=== PATIENT | male | born 1955 | race Caucasian/White ===

== ENCOUNTER 2021-04-02 15:06 | Emergency (ER) | payer MEDICARE ==
[2021-04-02] MEDS ORDERED: PREDNISONE 20MG20 MG PO ×2 (16:44→16:45)
== END 2021-04-02 17:05 | disposition home or self-care (01) ==
LOC: FER 15:06
DX: J30.9 Allergic rhinitis, unspecified (principal)
CPT/HCPCS: 99282; J1100

== ENCOUNTER 2021-04-15 11:54 | Emergency (ER) | payer MEDICARE, OTHER ==
[~2021-04-15 11:54] MED LIST: PREDNISONE 20MG20 MG PO
[2021-04-15 13:12] LABS: BASOPHIL 0.3 % (0-2); EOSINOPHIL 1.3 % (0-7); HCT 43.3 % (42.0-52.0); HGB 14.7 g/dl (13.2-18.0); LYMPHOCYTE 18.8 % (15-48); MCH 31.5 pg (25.0-31.0); MCHC 33.9 g/dL (32.0-36.0); MCV 92.7 fL (78.0-100.0); MPV 10.3 fL (6.0-9.5); NEUTROPHIL 71.4 % (41-80); NRBC 0; PLT 243 K/uL (150-400); RBC 4.67 M/uL (4.70-6.00); RDW 15.4 % (11.5-14.0); WBC 10.9 K/uL (4.0-10.5)
[2021-04-15 13:49] LABS: LACTIC ACID 1.2 mmol/L (0.4-1.9)
[2021-04-15 14:19] LABS: ALBUMIN 3.2 g/dL (3.4-5.0); BILIRUBIN - TOTAL 0.3 mg/dL (0.2-1.0); BUN/CREAT RATIO (CALC) 17.9 RATIO; CREATININE 0.78 mg/dL (0.67-1.17); POTASSIUM 4.1 mmol/L (3.5-5.1); TOTAL PROTEIN 7.2 g/dL (6.4-8.2)
[2021-04-15 14:29] LABS: BILIRUBIN NEGATIVE (NEGATIVE); BLOOD NEGATIVE Ery/uL (NEGATIVE); CLARITY CLEAR (CLEAR); COLOR YELLOW (YELLOW); GLUCOSE (U) NORMAL (NORMAL); LEUKOCYTES NEGATIVE Leu/uL (NEGATIVE); NITRITE NEGATIVE (NEGATIVE); PROTEIN NEGATIVE (NEGATIVE); UROBILINOGEN 0.2 mg/dL (0.2-1.0)
[2021-04-15] MEDS ORDERED: LEVAQUIN750 MG PO (15:19)
[2021-04-15] MEDS ORDERED: PREDNISONE20 MG PO (15:19)
[2021-04-15] MEDS ORDERED: HYCODAN5 ML PO (15:19)
[2021-04-15] MEDS ORDERED: TESSALON PERLE100 M1 PO (15:19)
[2021-04-15] MEDS ORDERED: VENTOLIN HFA18 GM INH (15:19)
== END 2021-04-15 16:00 | disposition home or self-care (01) ==
LOC: FER 11:54
PROVIDERS: Emergency Medicine
DX: J44.0 Chronic obstructive pulmonary disease with (acute) lower respiratory infection (principal); J21.9 Acute bronchiolitis, unspecified; F17.210 Nicotine dependence, cigarettes, uncomplicated; M25.50 Pain in unspecified joint; Z79.52 Long term (current) use of systemic steroids
CPT/HCPCS: 36415; 70450; 71250; 80053; 81003; 82728; 83605; 84145; 84484; 85025; 86140; J1170; J1956; J2405; J7030